=== PATIENT | female | born 1970 | race Caucasian/White ===

== ENCOUNTER 2017-05-19 05:24 | Inpatient (IN) | payer OTHER ==
[2017-05-19] VITALS (8 sets, daily range): BP systolic 105–130; BP diastolic 55–75; PULSE 72–92; RESP 15–19; TEMP 96.9–98.3; O2SAT 94–100
[~2017-05-19] VITALS: Ht 177.8 cm; Wt 80.0 kg
[~2017-05-19 05:24] MED LIST: LORT7.5T3 PO
[2017-05-19] MEDS ORDERED: SODIUM CHLOR 0.9% 1000 ML INJ 1,000 ML IV SCH (05:41)
[2017-05-19] MEDS ORDERED: SODIUM CHLORIDE 0.9% FLUSH 10 ML FLUSH IVF PRN (05:45)
[2017-05-19] MEDS ORDERED: MORPHINE SULFATE 4 MG/ML INJ IV PUSH ONE ×2 (05:45→08:45)
[2017-05-19 06:33] LABS: AUTOMATED NEUTROPHIL # 10.8 TH/MM3 (1.8-7.7); BASOPHIL % 0.2 % (0.0-2.0); EOSINOPHIL # 0.1 TH/MM3 (0-0.4); EOSINOPHIL % 0.5 % (0.0-4.0); HEMATOCRIT 39.9 % (35.0-46.0); HEMO FLAGS DIFF FINAL; LYMPH % 15.4 % (9.0-44.0); LYMPHOCYTE # 2.1 TH/MM3 (1.0-4.8); MEAN CELL VOLUME 95.2 FL (80.0-100.0); MEAN CORPUSCULAR HEMOGLOBIN 32.1 PG (27.0-34.0); MEAN CORPUSCULAR HGB CONC 33.7 % (32.0-36.0); MONO % 3.6 % (0.0-8.0); NEUT % 80.3 % (16.0-70.0); PLATELET COUNT 231 TH/MM3 (150-450); RED BLOOD COUNT 4.19 MIL/MM3 (4.00-5.30); RED CELL DISTRIBUTION WIDTH 13.5 % (11.6-17.2); WHITE BLOOD COUNT 13.4 TH/MM3 (4.0-11.0)
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
[2017-05-19] MEDS ORDERED: IOHEXOL 350 MG/ML 10 ML VIAL (for RAD DIAG) IVCONTRAST ONE (08:34)
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
[2017-05-19] MEDS ORDERED: SODIUM CHLOR 0.9% 1000 ML INJ 1,000 ML IV ONE (09:00)
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
[2017-05-19 10:11] LABS: BICARBONATE 21.2 MEQ/L (21.0-32.0); POTASSIUM 4.2 MEQ/L (3.5-5.1)
[2017-05-19] MEDS ORDERED: ENALAPRILAT 1.25 MG/ML VIAL IV PUSH PRN (12:00)
[2017-05-19] MEDS ORDERED: MORPHINE SULFATE 4 MG/ML INJ IV PUSH PRN (12:00)
[2017-05-19] MEDS ORDERED: ACETAMINOPHEN/HYDROcodone 325 MG/5 MG TAB PO PRN (12:00)
[2017-05-19] MEDS ORDERED: ONDANSETRON HCL 4 MG/2 ML VIAL IV PUSH PRN (12:00)
[2017-05-19] MEDS ORDERED: SODIUM CHLORIDE 0.9% FLUSH 10 ML FLUSH IV FLUSH PRN (12:00)
[2017-05-19] MEDS ORDERED: MAGNESIUM HYDROXIDE SUSP 30 ML CUP PO PRN (12:00)
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
[2017-05-19] MEDS: SODIUM CHLOR 0.9% 1000 ML INJ 1,000 ML IV SCH ×2 (14:09→22:00)
[2017-05-19] MEDS: MULTIVITAMIN INJ 10 ML, THIAMINE INJ 100 MG, FOLIC ACID INJ 1 MG in SODIUM CHLORID 0.9%... IV SCH (14:09)
[2017-05-19] MEDS: PANTOPRAZOLE SODIUM 40 MG VIAL IVP SCH (14:10)
[2017-05-19] MEDS: DOCUSATE SODIUM 100 MG CAP PO SCH (19:35)
[2017-05-19] MEDS: ACETAMINOPHEN/HYDROcodone 325 MG/5 MG TAB PO PRN (19:36)
[2017-05-20] MEDS ORDERED: SODIUM CHLORID 0.9% 500 ML IV PRN (00:30)
[2017-05-20] MEDS ORDERED: CHLORHEXIDINE GLUCONATE 2 % 1 PACK (2 CLOTHS) TOPICAL PRN (00:30)
[2017-05-20] MEDS ORDERED: INSULIN HUMAN REGULAR 1,000 UNITS/10 ML VIAL SQ PRN (00:30)
[2017-05-20] MEDS ORDERED: POVIDONE IODINE 5% (ANTISEPSIS KIT) 4 APPLICATIONS EACH NARE PRN (00:30)
[2017-05-20] MEDS: ACETAMINOPHEN/HYDROcodone 325 MG/5 MG TAB PO PRN (00:42)
[2017-05-20] MEDS: ZOLPIDEM TARTRATE 10 MG TAB PO PRN ×2 (01:30→21:41)
[2017-05-20 03:18] VITALS: BP 126/69; PULSE 87; RESP 17; TEMP 96.8; O2SAT 97
[2017-05-20 05:23] LABS: AUTOMATED NEUTROPHIL # 5.4 TH/MM3 (1.8-7.7); BASOPHIL % 0.5 % (0.0-2.0); EOSINOPHIL # 0.1 TH/MM3 (0-0.4); EOSINOPHIL % 1.2 % (0.0-4.0); HEMATOCRIT 32.1 % (35.0-46.0); HEMO FLAGS DIFF FINAL; LYMPH % 30.1 % (9.0-44.0); LYMPHOCYTE # 2.6 TH/MM3 (1.0-4.8); MEAN CELL VOLUME 93.4 FL (80.0-100.0); MEAN CORPUSCULAR HEMOGLOBIN 31.6 PG (27.0-34.0); MEAN CORPUSCULAR HGB CONC 33.8 % (32.0-36.0); MONO % 6.8 % (0.0-8.0); NEUT % 61.4 % (16.0-70.0); PLATELET COUNT 152 TH/MM3 (150-450); RED BLOOD COUNT 3.44 MIL/MM3 (4.00-5.30); RED CELL DISTRIBUTION WIDTH 13.8 % (11.6-17.2); WHITE BLOOD COUNT 8.7 TH/MM3 (4.0-11.0)
[2017-05-20 05:31] LABS: ANION GAP 8 MEQ/L (5-15); AST (GOT) 51 U/L (15-37); BICARBONATE 23.1 MEQ/L (21.0-32.0); BLOOD UREA NITROGEN 8 MG/DL (7-18); CHLORIDE 107 MEQ/L (98-107); GLOMERULAR FILTRATION RATE 107 ML/MIN (>89); POTASSIUM 3.7 MEQ/L (3.5-5.1); SODIUM (NA) 138 MEQ/L (136-145)
[2017-05-20 05:32] LABS: ALT (GPT) 38 U/L (10-53)
[2017-05-20 05:34] LABS: ALKALINE PHOSPHATASE 40 U/L (45-117); TOTAL BILIRUBIN ADULT 0.5 MG/DL (0.2-1.0)
[2017-05-20] MEDS ORDERED: ACETAMINOPHEN 1000 MG/100 ML 100 ML IV ONE (06:37)
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
[2017-05-20] MEDS ORDERED: HYDR-3580 PO (06:39)
[2017-05-20] MEDS: LACTATED RINGER'S 1000 ML IV PRN ×2 (06:49→07:15)
[2017-05-20] MEDS ORDERED: GENTAMICIN SULFATE 80 MG/2 ML VIAL ONE (07:07)
[2017-05-20] MEDS ORDERED: BUPIVACAINE HCL PF 0.25% 30 ML VIAL ONE (07:08)
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
[2017-05-20] MEDS ORDERED: VANCOMYCIN HCL 1000 MG VIAL ONE (07:25)
[2017-05-20] MEDS ORDERED: ceFAZolin 2 GM PREMIX 50 ML ONE (07:25)
--- NOTE | 2017-05-20 09:09 | PD.OP ---
cc: Robbi Mocsoso MD Operative Report Date of Surgery: May 20, 2017 Preoperative Diagnosis: Displaced left humerus shaft fracture Postoperative Diagnosis: Procedure: Open reduction internal fixation left humerus Anesthesia: Gen. Surgeon: Robbi Moscoso Rotary Soil Stabilizer(s): CINDY Jerry PA-C The surgical procedure was assisted by my physician bilingual teacher assistant. My P.A. presence was necessary throughout this case for the manipulation and positioning of the surgical extremity. My P.A. was assisting me throughout the duration of this procedure. The skill set of a physician bilingual teacher assistant was medically necessary to complete this procedure. During the surgical case the surgical services coordinator was working at the back table and the physician bilingual teacher assistant was directly assisting me. Operation and Findings: Doris was seen and evaluated preoperatively. Treatment options were discussed regarding humerus fracture including surgical and nonsurgical treatments. After detailed discussion of risk and benefits of procedure patient wishes to proceed with surgery. Risks of surgery include bleeding, infection, nonunion, malunion, painful hardware, loss of motion of shoulder and elbow, weakness and numbness of arm, as well as medical competitions including blood clots stroke and . Patient was brought to operating room and placed on the OR table. GETA was administered by anesthesiologist. Patient was positioned in lateral decubitus position. Extremities were well-padded. Axillary roll was placed. Left arm and shoulder were prepped with alcohol followed by Hibiclens and draped usual sterile fashion. Timeout procedure was performed. IV antibiotics were given prior to incision. A standard posterior approach was utilized. Subcutaneous tissues was dissected with Bovie. The triceps muscle was split midline. The radial nerve was identified and protected throughout the procedure. The nerve was intact. The fracture was identified. Soft tissue was removed from the fracture site. Fracture site was cleaned with curettes. At this point the fracture was reduced using fracture tenaculums. Multiplanar fluoroscopy confirmed excellent of fracture. A ITS 4.5 plate was contoured to fit the humerus. Plate was provisionally held the bone with K wires. 4.5 cortical screws were placed on each side of the fracture. The screws were placed to add compression to fracture. Multiple screws were placed in each side of the fracture. All screws were predrilled and premeasured for appropriate length. Final fluoroscopy revealed excellent alignment of fracture with well-placed hardware. Incision was thoroughly irrigated. Fascia was closed with #1 Vicryl, subcutaneous tissues closed with 3-0 Vicryl, and skin was closed with garret. Sterile dressings were applied. Needle and sponge counts were correct. Patient was placed into a sling, and then transferred to recovery room in stable condition Robbi Moscoso MD May 20, 2017 09:09
[2017-05-20] MEDS ORDERED: SODIUM CHLORIDE 0.9% FLUSH 5 ML FLUSH IVF PRN (09:15)
[2017-05-20] MEDS ORDERED: DO NOT ADM ANY ANTICOAGULANT DRUGS PRN (09:35)
[2017-05-20] MEDS ORDERED: *morphine SULFATE 8 MG/ML PERIprocedure ONLY ONE (09:58)
[2017-05-20 10:25] VITALS: BP 120/72; PULSE 67; RESP 18; TEMP 97.6; O2SAT 100
--- NOTE | 2017-05-20 10:25 | RADRPT ---
EXAM DATE/TIME: 05/20/2017 08:50 [facility] COMPARISON: HUMERUS LEFT (MIN 2VWS), May 19, 2017, 7:22. INDICATIONS : Open reduction internal fixation of left humerus. MEDICAL HISTORY : None. SURGICAL HISTORY : None. ENCOUNTER: Initial ACUITY: 1 day PAIN SCORE: Non-responsive. LOCATION: Left Humerus. FINDINGS: Plate with screws is seen bridging the proximal humerus. Alignment is anatomic. CONCLUSION: Anatomic alignment. Gerard Mendes MD FACR on May 20, 2017 at 10:23 Board Certified Radiologist. This report was verified electronically.
[2017-05-20] MEDS: DOCUSATE SODIUM 100 MG CAP PO SCH ×2 (10:40→20:38)
[2017-05-20] MEDS: PANTOPRAZOLE SODIUM 40 MG VIAL IVP SCH (10:40)
[2017-05-20 11:34] VITALS: O2SAT 94
[2017-05-20] MEDS: SODIUM CHLOR 0.9% 1000 ML INJ 1,000 ML IV SCH ×2 (11:48→17:15)
[2017-05-20 12:00] VITALS: BP 129/68; PULSE 73; RESP 18; TEMP 96.9; O2SAT 96
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
[2017-05-20] MEDS: MULTIVITAMIN INJ 10 ML, THIAMINE INJ 100 MG, FOLIC ACID INJ 1 MG in SODIUM CHLORID 0.9%... IV SCH (13:37)
[2017-05-20] MEDS: CALCIUM/VITAMIN D 250 MG/125 U TAB PO SCH ×2 (13:37→17:16)
[2017-05-20] MEDS: ACETAMINOPHEN/HYDROcodone 325 MG/10 MG TAB PO PRN ×2 (13:40→20:38)
[2017-05-20] MEDS ORDERED: DOCU1CAP39 PO (15:47)
[2017-05-20] MEDS ORDERED: MAGN400S PO (15:47)
[2017-05-20] MEDS ORDERED: ADJUST ALUMINUM1 MI1 (15:50)
[2017-05-20 16:00] VITALS: BP 131/57; PULSE 58; RESP 18; TEMP 97; O2SAT 99
[2017-05-20] MEDS ORDERED: ceFAZolin 2 GM PREMIX 50 ML IV SCH (16:00)
[2017-05-20] MEDS: MORPHINE SULFATE 4 MG/ML INJ IV PUSH PRN ×2 (17:16→22:50)
[2017-05-20 20:15] VITALS: BP 143/63; PULSE 61; RESP 17; TEMP 97.9; O2SAT 97
[2017-05-20] MEDS: SODIUM CHLORIDE 0.9% FLUSH 5 ML FLUSH IVF SCH (20:38)
[2017-05-21 00:30] VITALS: BP 122/67; PULSE 78; RESP 16; TEMP 97.2; O2SAT 94
[2017-05-21] MEDS: SODIUM CHLOR 0.9% 1000 ML INJ 1,000 ML IV SCH (00:36)
[2017-05-21] MEDS: MORPHINE SULFATE 4 MG/ML INJ IV PUSH PRN ×3 (01:48→07:34)
[2017-05-21] MEDS: ACETAMINOPHEN/HYDROcodone 325 MG/10 MG TAB PO PRN ×3 (02:30→11:25)
[2017-05-21 03:30] VITALS: BP 116/63; PULSE 73; RESP 16; TEMP 97.7; O2SAT 96
[2017-05-21 05:48] LABS: AUTOMATED NEUTROPHIL # 5.1 TH/MM3 (1.8-7.7); BASOPHIL % 0.3 % (0.0-2.0); EOSINOPHIL # 0.1 TH/MM3 (0-0.4); EOSINOPHIL % 1.2 % (0.0-4.0); HEMO FLAGS DIFF FINAL; LYMPH % 33.9 % (9.0-44.0); MEAN CELL VOLUME 94.5 FL (80.0-100.0); MEAN CORPUSCULAR HEMOGLOBIN 31.7 PG (27.0-34.0); MEAN CORPUSCULAR HGB CONC 33.6 % (32.0-36.0); MONO % 6.6 % (0.0-8.0); PLATELET COUNT 173 TH/MM3 (150-450); RED BLOOD COUNT 3.17 MIL/MM3 (4.00-5.30); RED CELL DISTRIBUTION WIDTH 13.6 % (11.6-17.2); WHITE BLOOD COUNT 8.8 TH/MM3 (4.0-11.0)
[2017-05-21 06:03] LABS: BICARBONATE 25.2 MEQ/L (21.0-32.0); POTASSIUM 3.5 MEQ/L (3.5-5.1)
--- NOTE | 2017-05-21 06:50 | PD.ORT.PN ---
Subjective Subjective Remarks POD 1 s/p ORIF left humeral shaft fx s/p left radial styloid fx reports significant pain overnight. very uncomfortable Objective Vitals Vital Signs Date Time Temp Pulse Resp B/P (MAP) Pulse Ox O2 Delivery O2 Flow Rate FiO2 05/21/17 03:30 97.7 73 16 116/63 (80) 96 05/21/17 00:30 97.2 78 16 122/67 (85) 94 05/20/17 21:30 21 05/20/17 20:15 97.9 61 17 143/63 (89) 97 05/20/17 20:02 Room Air 05/20/17 17:33 18 05/20/17 16:00 97.0 58 18 131/57 (81) 99 05/20/17 14:40 18 05/20/17 12:00 96.9 73 18 129/68 (88) 96 05/20/17 11:34 94 05/20/17 10:25 97.6 67 18 120/72 (88) 100 05/20/17 10:15 97.7 60 16 121/65 (83) 98 Nasal Cannula 2 05/20/17 10:03 15 05/20/17 10:00 65 15 122/60 (80) 97 Nasal Cannula 2 05/20/17 09:45 70 14 120/58 (78) 97 Nasal Cannula 2 05/20/17 09:30 97.7 81 12 121/68 (85) 100 Nasal Cannula 3 I/O 05/20/17 05/20/17 05/20/17 05/21/17 05/21/17 05/21/17 07:00 15:00 23:00 07:00 15:00 23:00 Intake Total 0 ml 1130 ml 1430 ml 1070 ml Output Total 1 ml 100 ml Balance -1 ml 1030 ml 1430 ml 1070 ml Intake Oral 0 ml 480 ml 480 ml 240 ml IV Total 50 ml 950 ml 830 ml Other 600 ml Output Urine Total 1 ml Estimated Blood Loss 100 ml # Voids 1 2 1 # Bowel Movements 0 0 0 0 Result Diagram: 05/21/17 0459 05/21/17 0459 Objective Remarks LUE: +short arm splint. dressings clean and dry. intact. NVI. Assessment & Plan Assessment and Plan 1) Left Humeral Shaft Fx s/p ORIF - POD 1 -NWB -maintain sling -therapy to work on pendulums -change pain meds to [place] 10/325 Q3H for pain 3-10 -if doing well and pain controlled, ok for DC home this afternoon -f/u with Kapil or JONELLE in 2 weeks 2) Left Radial Styloid Fx - nonop -NWB -mainatin splint. Bharathi Mcneil May 21, 2017 06:50
[2017-05-21] MEDS ORDERED: HYDR-3366 PO (06:52)
--- NOTE | 2017-05-21 06:56 | HHI.FF ---
Face to Face Verification Diagnosis: (1) Left humeral fracture (2) Left wrist fracture Occupational Therapy Left UE Weight Bearing: Non WB Left UE Range of Motion: Pendular Nursing Dressing Changes: Do not change dressing (maintain wrist splint at all times), Daily dressing change, Arnel wrap (of upper arm), 4x4s, Xeroform I have seen patient Doris Naik on 05/21/17. My clinical findings support the need for the requested home health care services because: Ltd mobility - disease progression I certify that my clinical findings support that this patient is homebound because: Post-op weakness Bharathi Mcneil May 21, 2017 06:56
[2017-05-21 08:00] VITALS: BP 116/67; PULSE 79; RESP 16; TEMP 98; O2SAT 92
[2017-05-21] MEDS: DOCUSATE SODIUM 100 MG CAP PO SCH (08:28)
[2017-05-21] MEDS: CALCIUM/VITAMIN D 250 MG/125 U TAB PO SCH ×2 (08:28→11:25)
[2017-05-21 08:30] VITALS: O2SAT 93
[2017-05-21] MEDS: SODIUM CHLORIDE 0.9% FLUSH 5 ML FLUSH IVF SCH (08:31)
[2017-05-21] MEDS: PANTOPRAZOLE SODIUM 40 MG VIAL IVP SCH (11:26)
[2017-05-21 12:00] VITALS: BP 129/67; PULSE 78; RESP 16; TEMP 97.1; O2SAT 92
[2017-05-21 12:27] VITALS: RESP 16
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
== END 2017-05-21 16:07 | disposition home health service (06) | DRG 493 ==
LOC: NEPC 05:24 → NEDA 09:14 → N06B 12:25
PROVIDERS: ADMIT Surgery; ATTEND Surgery
PROC: 0PSG04Z Reposition Left Humeral Shaft with Internal Fixation Device, Open Approach (ICD-10-PCS; principal; 2017-05-20 07:30)
DX: S42.352A Displaced comminuted fracture of shaft of humerus, left arm, initial encounter for closed fracture (principal); S52.572A Other intraarticular fracture of lower end of left radius, initial encounter for closed fracture; S32.028A Other fracture of second lumbar vertebra, initial encounter for closed fracture; F10.120 Alcohol abuse with intoxication, uncomplicated; Y90.7 Blood alcohol level of 200-239 mg/100 ml; N83.202 Unspecified ovarian cyst, left side; Y92.410 Unspecified street and highway as the place of occurrence of the external cause; V47.5XXA Car driver injured in collision with fixed or stationary object in traffic accident, initial encounter
CPT/HCPCS: 70450; 71260; 72125; 72128; 72131; 73060; 73090; 74177; 76000; 76937; 80048; 80053; 80307; 85025; 86850; 86900; 86901; 94150; 96361; 96374; 96376; C9113; J0131; J0690; J1580; J2270; J3370; J3411; J7030; J7040; J7120; Q9967